=== PATIENT | female | born 1975 | race Caucasian/White ===

== ENCOUNTER 2020-08-23 08:02 | Inpatient (IN) | payer MEDICAID, SELFPAY ==
[2020-08-23 08:03] VITALS: BP 127/75; PULSE 103; RESP 18; TEMP 36.7; O2SAT 97; BMI 19.0
--- NOTE | 2020-08-23 08:20 | ED_ITS ---
Documented by User: EstelaJONATHAN Solano 08/23/20 14:25 HPI - Psych General: Chief Complaint: Psychiatric Symptoms Stated Complaint: SI, METH USE Time Seen by Provider: 08/23/20 08:08 History of Present Illness: HPI Narrative: 44-year-old female patient presents to the emergency department with suicidal ideations, increased auditory hallucinations. She reports out of Suboxone for the past 2 days. She receives her Suboxone by her mental health provider in [facility]. She reports failed to show for an appointment for refills. Relapsed use of methamphetamine last night. She is brought to the emergency department via EMS this morning with request to be admitted to the stress unit. She reports increased stress as she does not have a place to live, her kids do not want her around. She reports increased auditory hallucinations with voices yelling and screaming at her to kill her self. When asked how, she reports, voices are telling me to cut myself , she reports previous suicide attempt at age 17 by cutting, she reports placed on 96-hour hold in the past. She was brought to the emergency department due to nausea chills and abdominal pain, withdrawal symptoms from Suboxone , received Versed and Zofran in route, she reports is hungry upon exam and wants to eat something. MD complaint: suicidal ideation, feels depressed and altered mental status (recent use of metamphetamine) Onset (ago): hour(s) (8) Duration: intermittent History of same: Yes Relieving factors: medication Exacerbating factors: drug use Context: recent drug abuse, significant life stressor and other (out of Suboxone) Associated psychiatric symptoms: depression, suicidal ideation, auditory hallucinations and delusions Associated symptoms: Reports auditory hallucinations, depression and suicidal ideation Treatments prior to arrival: other (versed and zofran) If self harm: admits thoughts of self harm Review of Systems General: Reports: 10 or more systems reviewed and unremarkable except in HPI and below Const: Denies: fever(s), chills or diaphoresis Eyes: Denies: blurry vision or eye redness ENMT: Denies: throat pain, dental pain or disequilibrium Card: Denies: chest pain, palpitations or irregular heart rhythm Resp: Denies: dyspnea, productive cough, non-productive cough or wheezing GI: Reports: abdominal pain (now resolved) and nausea; Denies: vomiting : Denies: difficulty voiding or dysuria Musc: Denies: neck pain, back pain or joint pain Skin/Breast: Denies: rash or pruritus Neuro: Denies: headache(s), weakness in extremities or behavioral changes Psych: Reports: anxiety, depression, panic attacks, sleeping less, change in appetite, paranoia, difficulty concentrating, auditory hallucinations and suicidal ideation Eladio/Lymph: Denies: easy bruising PFSH ED PFSH: Medical History Anxiety Depression Opioid abuse Family History (System 06/27/20 @ 12:19 by Caridad Carrillo) Other Atrial fibrillation CAD (coronary artery disease) Social History Smoking and tobacco status: current every day smoker Alcohol intake: never Female Reproductive History: Date of last menstrual period: 06/18/20 Physical Exam Const: COMMON NORMALS: no acute distress, patient oriented x3 and alert EXAM LIMITATIONS: behavioral limitations GENERAL APPEARANCE: cooperative and anxious NUTRITIONAL APPEARANCE: thin ORIENTATION/CONSCIOUSNESS: Yes awake, Yes oriented to person, Yes oriented to place and Yes oriented to time HENMT: COMMON NORMALS: normocephalic, atraumatic, EAC's normal, Normal external nose present and moist oral mucous membranes HEAD & SCALP: normal to inspection, normocephalic and atraumatic FACE & SINUS: normal facial exam and face symmetric NOSE: Normal external nose present EXTERNAL AUDITORY CANAL: EAC's normal MOUTH: tongue normal and moist mucous membranes abnormal (dry) THROAT: posterior oropharynx normal and uvula midline Eye: COMMON NORMALS: Equal, round and reactive pupils present and EOMs intact bilaterally GENERAL EYE: appearance normal, both eyes and all related structures PUPIL: Yes Equal, round and reactive pupils present Neck/C-Spine: COMMON NORMALS: full ROM, no lymphadenopathy and supple GENERAL: Yes normal visual inspection and Yes trachea midline CERVICAL SPINE: Yes cervical ROM normal Lymph: LYMPHATIC: no lymphadenopathy noted Chest: COMMONS NORMALS: normal inspection of the chest and normal palpation of entire chest wall Resp: COMMON NORMALS: normal respiratory effort, No retractions, No use of accessory muscles and clear to auscultation bilaterally EFFORT & INSPECTION: Yes able to speak in complete sentences AUSCULTATION: clear to auscultation bilaterally Cardio: COMMON NORMALS: regular rate, regular rhythm, S1 normal heart sound present and S2 normal heart sound present RATE: regular rate and tachycardic (slight) RHYTHM: regular rhythm HEART SOUNDS: S1 normal heart sound present and S2 normal heart sound present GI: COMMON NORMALS: Soft to palpation and non-tender INSPECTION: Yes normal to inspection PALPATION: Yes Soft to palpation : COMMON NORMALS: Yes no CVA tenderness BLADDER/KIDNEY EXAM: Yes no CVA tenderness Back/Pelvis: COMMON NORMALS: no CVA tenderness and thoracic and lumbar spine normal to inspection Extremity: COMMON NORMALS: normal to inspection and capillary refill normal Neuro: COMMON NORMALS: patient oriented x3 and no focal motor deficits SENSORIUM/ORIENTATION: Yes alert, Yes oriented to person, Yes oriented to place and Yes oriented to time Psych: COMMON NORMALS: mental status grossly normal and cooperative APPEARANCE: Yes unkempt and Yes disheveled ATTITUDE: Yes calm ACTIVITY/MOTOR BEHAVIOR: Yes appropriate eye contact, Yes fidgeting, Yes hyperactivity, Yes disorganized behavior and Yes restless SPEECH: Yes rapid MOOD & AFFECT: Yes anxious THOUGHT PROCESS: Circumstantial thought process present and disorganized THOUGHT CONTENT: Yes Suicidality present ATTENTION/CONCENTRATION: Yes attention grossly intact MEMORY/COGNITION: Yes memory grossly intact INSIGHT: Fair insight present (Psych) JUDGEMENT: Fair judgement present (Psych) Skin: COMMON NORMALS: no rashes or lesions noted, no wounds and turgor normal GENERAL SKIN EXAM: no rashes or lesions noted and turgor normal MDM - Psych Lab Data: Labs: Lab Results 08/23/20 08/23/20 08/23/20 Range/Units 08:21 08:21 08:21 WBC (4.0-10.0) 10^3/ uL RBC (4.1-5.3) 10^6/u L Hgb (11.5-15.3) g/dL Hct (37.0-47.0) % MCV (81-99) fL MCH (28.0-34.0) pg MCHC (30.0-36.0) g/dL RDW (12.1-15.1) % Plt Count (130-400) 10^3/c mm MPV (7.4-10.4) fL Neut % (Auto) % Lymph % (Auto) % [place] % (Auto) % Eos % (Auto) % Baso % (Auto) % Neut # (Auto) (1.8-7.7) 10^3/u L Lymph # (Auto) (0.8-4.8) 10^3/u L [place] # (Auto) (0.2-0.9) 10^3/u L Eos # (Auto) (0.0-0.8) 10^3/u L Baso # (Auto) (0.0-0.1) 10^3/u L Nucleated RBC % (a uto) % Nucleated RBCs # /100WBC Sodium (136-145) mmol/L Potassium (3.5-5.1) mmol/L Chloride (98-107) mmol/L Carbon Dioxide (22-29) mmol/L Anion Gap (5-19) BUN (6-20) mg/dL Creatinine (0.5-0.9) mg/dL GFR Calculation (90-130) mL/min Glucose (65-115) mg/dL Calculated Osmolal ity (285-295) mOsm/k g Calcium (8.5-10.5) mg/dL Total Bilirubin (0.15-1.2) mg/dL AST (0-32) U/L ALT (0-33) U/L Alkaline Phosphata se (35-105) IU/L Total Protein (6.6-8.7) g/dL Albumin (3.5-5.2) g/dL Globulin (1.3-4.6) g/dL Lipase (13-60) U/L Urine Color Yellow (Yellow) Urine Appearance Clear (CLEAR) Urine pH 5 (5-7) Ur Specific Gravit y 1.005 (1.005-1.030) Urine Protein Neg (Negative) Urine Glucose (UA) Norm (Normal) Urine Ketones Negative (Negative) Urine Blood Neg (Negative) Urine Nitrate Negative (Negative) Urine Bilirubin Neg (Negative) Urine Urobilinogen 1 H (Negative) mg/dL Ur Leukocyte Shayy ase Negative (Negative) Urine HCG, Qual Negative (Negative) Salicylates (3-10) mg/dL Urine Opiates Scre en Negative (Negative) ng/mL Acetaminophen (10-30) ug/mL Ur Barbiturates Sc reen Negative (Negative) ng/mL Ur Phencyclidine S crn Negative (Negative) ng/mL Ur Amphetamines Sc reen Positive H (Negative) ng/mL U Benzodiazepines Scrn Negative (Negative) ng/mL Urine Cocaine Scre en Negative (Negative) ng/mL U Marijuana (THC) Screen Positive H (Negative) ng/mL Ethyl Alcohol (0-10) mg/dL 08/23/20 08/23/20 Range/Units 08:58 08:58 WBC 8.4 (4.0-10.0) 10^3/ uL RBC 4.93 (4.1-5.3) 10^6/u L Hgb 12.1 (11.5-15.3) g/dL Hct 38.6 (37.0-47.0) % MCV 78.3 L (81-99) fL MCH 24.5 L (28.0-34.0) pg MCHC 31.3 (30.0-36.0) g/dL RDW 16.0 H (12.1-15.1) % Plt Count 286 (130-400) 10^3/c mm MPV 11.0 H (7.4-10.4) fL Neut % (Auto) 51.8 % Lymph % (Auto) 35.4 % [place] % (Auto) 7.5 % Eos % (Auto) 4.7 % Baso % (Auto) 0.5 % Neut # (Auto) 4.37 (1.8-7.7) 10^3/u L Lymph # (Auto) 3.0 (0.8-4.8) 10^3/u L [place] # (Auto) 0.6 (0.2-0.9) 10^3/u L Eos # (Auto) 0.4 (0.0-0.8) 10^3/u L Baso # (Auto) 0.0 (0.0-0.1) 10^3/u L Nucleated RBC % (a uto) 0 % Nucleated RBCs # 0.0 /100WBC Sodium 138 (136-145) mmol/L Potassium 3.7 (3.5-5.1) mmol/L Chloride 104 (98-107) mmol/L Carbon Dioxide 24 (22-29) mmol/L Anion Gap 13.7 (5-19) BUN 18 (6-20) mg/dL Creatinine 0.4 L (0.5-0.9) mg/dL GFR Calculation 174.2 H (90-130) mL/min Glucose 76 (65-115) mg/dL Calculated Osmolal ity 287 (285-295) mOsm/k g Calcium 9.5 (8.5-10.5) mg/dL Total Bilirubin 0.4 (0.15-1.2) mg/dL AST 19 (0-32) U/L ALT 11 (0-33) U/L Alkaline Phosphata se 67 (35-105) IU/L Total Protein 7.0 (6.6-8.7) g/dL Albumin 4.2 (3.5-5.2) g/dL Globulin 2.8 (1.3-4.6) g/dL Lipase 12 L (13-60) U/L Urine Color (Yellow) Urine Appearance (CLEAR) Urine pH (5-7) Ur Specific Gravit y (1.005-1.030) Urine Protein (Negative) Urine Glucose (UA) (Normal) Urine Ketones (Negative) Urine Blood (Negative) Urine Nitrate (Negative) Urine Bilirubin (Negative) Urine Urobilinogen (Negative) mg/dL Ur Leukocyte Shayy ase (Negative) Urine HCG, Qual (Negative) Salicylates < 0.3 L (3-10) mg/dL Urine Opiates Scre en (Negative) ng/mL Acetaminophen < 5.0 L (10-30) ug/mL Ur Barbiturates Sc reen (Negative) ng/mL Ur Phencyclidine S crn (Negative) ng/mL Ur Amphetamines Sc reen (Negative) ng/mL U Benzodiazepines Scrn (Negative) ng/mL Urine Cocaine Scre en (Negative) ng/mL U Marijuana (THC) Screen (Negative) ng/mL Ethyl Alcohol < 10 (0-10) mg/dL Discharge Plan Discharge Patient Disposition: Admitted As Inpatient Admit Provider: Travon Her Clinical Impression: Methamphetamine abuse, Acute psychosis Condition: Stable Sign Out Sign Out Data: Patient Sign Out occurred on 08/23/20 at 12:12. Patient's care was discussed, and care was transferred from to Jordan Bee DO. Coding Level of Care Code ED Accounting Machine Servicer for Chg Fwd Exam Comprehensive Documented by User: Jordan Bee DO 08/23/20 12:21 HPI - Psych General: Chief Complaint: Psychiatric Symptoms Stated Complaint: SI, METH USE Time Seen by Provider: 08/23/20 08:08 PFS ED PFSH: Medical History Anxiety Depression Opioid abuse Family History (System 06/27/20 @ 12:19 by Caridad Carrillo) Other Atrial fibrillation CAD (coronary artery disease) Social History Smoking and tobacco status: current every day smoker Alcohol intake: never MDM - Psych MDM Narrative: Medical decision making narrative: Patient initially seen by Estela Mercedes. Reviewed the case with her reviewed her note and seen the patient. Patient still appears to be under the influence of methamphetamines. She is denying suicidal ideation when she arrives here but had been stating she was suicidal she also having auditory hallucinations we will go ahead and admit her to Dr. Her has been consulted orders are written. Lab Data: Labs: Lab Results 08/23/20 08/23/20 08/23/20 Range/Units 08:21 08:21 08:21 WBC (4.0-10.0) 10^3/ uL RBC (4.1-5.3) 10^6/u L Hgb (11.5-15.3) g/dL Hct (37.0-47.0) % MCV (81-99) fL MCH (28.0-34.0) pg MCHC (30.0-36.0) g/dL RDW (12.1-15.1) % Plt Count (130-400) 10^3/c mm MPV (7.4-10.4) fL Neut % (Auto) % Lymph % (Auto) % [place] % (Auto) % Eos % (Auto) % Baso % (Auto) % Neut # (Auto) (1.8-7.7) 10^3/u L Lymph # (Auto) (0.8-4.8) 10^3/u L [place] # (Auto) (0.2-0.9) 10^3/u L Eos # (Auto) (0.0-0.8) 10^3/u L Baso # (Auto) (0.0-0.1) 10^3/u L Nucleated RBC % (a uto) % Nucleated RBCs # /100WBC Sodium (136-145) mmol/L Potassium (3.5-5.1) mmol/L Chloride (98-107) mmol/L Carbon Dioxide (22-29) mmol/L Anion Gap (5-19) BUN (6-20) mg/dL Creatinine (0.5-0.9) mg/dL GFR Calculation (90-130) mL/min Glucose (65-115) mg/dL Calculated Osmolal ity (285-295) mOsm/k g Calcium (8.5-10.5) mg/dL Total Bilirubin (0.15-1.2) mg/dL AST (0-32) U/L ALT (0-33) U/L Alkaline Phosphata se (35-105) IU/L Total Protein (6.6-8.7) g/dL Albumin (3.5-5.2) g/dL Globulin (1.3-4.6) g/dL Lipase (13-60) U/L Urine Color Yellow (Yellow) Urine Appearance Clear (CLEAR) Urine pH 5 (5-7) Ur Specific Gravit y 1.005 (1.005-1.030) Urine Protein Neg (Negative) Urine Glucose (UA) Norm (Normal) Urine Ketones Negative (Negative) Urine Blood Neg (Negative) Urine Nitrate Negative (Negative) Urine Bilirubin Neg (Negative) Urine Urobilinogen 1 H (Negative) mg/dL Ur Leukocyte Shayy ase Negative (Negative) Urine HCG, Qual Negative (Negative) Salicylates (3-10) mg/dL Urine Opiates Scre en Negative (Negative) ng/mL Acetaminophen (10-30) ug/mL Ur Barbiturates Sc reen Negative (Negative) ng/mL Ur Phencyclidine S crn Negative (Negative) ng/mL Ur Amphetamines Sc reen Positive H (Negative) ng/mL U Benzodiazepines Scrn Negative (Negative) ng/mL Urine Cocaine Scre en Negative (Negative) ng/mL U Marijuana (THC) Screen Positive H (Negative) ng/mL Ethyl Alcohol (0-10) mg/dL 08/23/20 08/23/20 Range/Units 08:58 08:58 WBC 8.4 (4.0-10.0) 10^3/ uL RBC 4.93 (4.1-5.3) 10^6/u L Hgb 12.1 (11.5-15.3) g/dL Hct 38.6 (37.0-47.0) % MCV 78.3 L (81-99) fL MCH 24.5 L (28.0-34.0) pg MCHC 31.3 (30.0-36.0) g/dL RDW 16.0 H (12.1-15.1) % Plt Count 286 (130-400) 10^3/c mm MPV 11.0 H (7.4-10.4) fL Neut % (Auto) 51.8 % Lymph % (Auto) 35.4 % [place] % (Auto) 7.5 % Eos % (Auto) 4.7 % Baso % (Auto) 0.5 % Neut # (Auto) 4.37 (1.8-7.7) 10^3/u L Lymph # (Auto) 3.0 (0.8-4.8) 10^3/u L [place] # (Auto) 0.6 (0.2-0.9) 10^3/u L Eos # (Auto) 0.4 (0.0-0.8) 10^3/u L Baso # (Auto) 0.0 (0.0-0.1) 10^3/u L Nucleated RBC % (a uto) 0 % Nucleated RBCs # 0.0 /100WBC Sodium 138 (136-145) mmol/L Potassium 3.7 (3.5-5.1) mmol/L Chloride 104 (98-107) mmol/L Carbon Dioxide 24 (22-29) mmol/L Anion Gap 13.7 (5-19) BUN 18 (6-20) mg/dL Creatinine 0.4 L (0.5-0.9) mg/dL GFR Calculation 174.2 H (90-130) mL/min Glucose 76 (65-115) mg/dL Calculated Osmolal ity 287 (285-295) mOsm/k g Calcium 9.5 (8.5-10.5) mg/dL Total Bilirubin 0.4 (0.15-1.2) mg/dL AST 19 (0-32) U/L ALT 11 (0-33) U/L Alkaline Phosphata se 67 (35-105) IU/L Total Protein 7.0 (6.6-8.7) g/dL Albumin 4.2 (3.5-5.2) g/dL Globulin 2.8 (1.3-4.6) g/dL Lipase 12 L (13-60) U/L Urine Color (Yellow) Urine Appearance (CLEAR) Urine pH (5-7) Ur Specific Gravit y (1.005-1.030) Urine Protein (Negative) Urine Glucose (UA) (Normal) Urine Ketones (Negative) Urine Blood (Negative) Urine Nitrate (Negative) Urine Bilirubin (Negative) Urine Urobilinogen (Negative) mg/dL Ur Leukocyte Shayy ase (Negative) Urine HCG, Qual (Negative) Salicylates < 0.3 L (3-10) mg/dL Urine Opiates Scre en (Negative) ng/mL Acetaminophen < 5.0 L (10-30) ug/mL Ur Barbiturates Sc reen (Negative) ng/mL Ur Phencyclidine S crn (Negative) ng/mL Ur Amphetamines Sc reen (Negative) ng/mL U Benzodiazepines Scrn (Negative) ng/mL Urine Cocaine Scre en (Negative) ng/mL U Marijuana (THC) Screen (Negative) ng/mL Ethyl Alcohol < 10 (0-10) mg/dL Discharge Plan Discharge Patient Disposition: Admitted As Inpatient Admit Provider: Travon Her Clinical Impression: Methamphetamine abuse, Acute psychosis Condition: Stable Sign Out Sign Out Data: Patient Sign Out occurred on 08/23/20 at 12:12. Patient's care was discussed, and care was transferred from to Jordan Bee DO. Coding Level of Care Code ED Accounting Machine Servicer for [place] Fwd Exam Comprehensive
[2020-08-23 08:39] LABS: Add Urine Microscopic? NO
[2020-08-23 08:48] LABS: Bilirubin Urine Neg (Negative); Blood Urine Neg (Negative); Glucose Urine UA Norm (Normal); Ketones Urine Negative (Negative); Leukocyte Esterase Urine Negative (Negative); Nitrate Urine Negative (Negative); Protein Urine Neg (Negative); Specific Gravity, Urine 1.005 (1.005-1.030); Urine Appearance Clear (CLEAR); Urine Color Yellow (Yellow); Urobilinogen Urine 1 mg/dL (Negative); pH Urine 5 (5-7)
[2020-08-23 08:55] LABS: Amphetamines Screen Urine Positive (Negative); Barbiturates Screen Urine Negative (Negative); Benzodiazepines Screen Urine Negative (Negative); Cocaine Screen Urine Negative (Negative); Opiate Screen Urine Negative (Negative); PCP Screen Urine Negative (Negative); THC Screen Urine Positive (Negative)
[2020-08-23] MEDS: sodium chloride 0.9% 1,000 ML 999 ML IV (09:06)
[2020-08-23 09:13] LABS: Basophils % 0.5 %; Eosinophils # 0.4 10^3/uL (0.0-0.8); Eosinophils % 4.7 %; Hematocrit 38.6 % (37.0-47.0); Hemoglobin 12.1 g/dL (11.5-15.3); Lymphocytes % 35.4 %; Mean Corpuscular HGB Conc 31.3 g/dL (30.0-36.0); Mean Corpuscular Hemoglobin 24.5 pg (28.0-34.0); Mean Corpuscular Volume 78.3 fL (81-99); Monocytes # 0.6 10^3/uL (0.2-0.9); Monocytes % 7.5 %; Neutrophils # 4.37 10^3/uL (1.8-7.7); Neutrophils % 51.8 %; Nucleated Red Blood Cells % 0 %; Platelet Count 286 10^3/cmm (130-400); Red Blood Count 4.93 10^6/uL (4.1-5.3); White Blood Count 8.4 10^3/uL (4.0-10.0)
[2020-08-23 09:38] LABS: Alanine Aminotransferase 11 U/L (0-33); Albumin Level 4.2 g/dL (3.5-5.2); Alkaline Phosphatase 67 IU/L (35-105); Anion Gap 13.7 (5-19); Aspartate Amino Transferase 19 U/L (0-32); Blood Urea Nitrogen 18 mg/dL (6-20); Calcium 9.5 mg/dL (8.5-10.5); Carbon Dioxide 24 mmol/L (22-29); Chloride 104 mmol/L (98-107); Globulin 2.8 g/dL (1.3-4.6); Glomerular Filtration Rate 174.2 mL/min (90-130); Glucose 76 mg/dL (65-115); Lipase 12 U/L (13-60); Osmolality Calculated 287 mOsm/kg (285-295); Potassium 3.7 mmol/L (3.5-5.1); Sodium 138 mmol/L (136-145); Total Bilirubin 0.4 mg/dL (0.15-1.2)
[2020-08-23 09:40] LABS: Acetaminophen < 5.0 ug/mL (10-30); Alcohol Level < 10 mg/dL (0-10); Salicylate < 0.3 mg/dL (3-10)
[2020-08-23 11:12] VITALS: BP 128/92; PULSE 78; RESP 18; O2SAT 98
[2020-08-23 14:20] VITALS: BP 133/112; PULSE 76; RESP 18; O2SAT 95
[2020-08-23 18:16] VITALS: RESP 18
[2020-08-23] MEDS: nicotine 2 mg Gum BUCCAL (19:41)
[2020-08-23] MEDS: OLANZapine 5 mg ODT PO (21:14)
[2020-08-23] MEDS: propranolol 20 mg Tablet PO (21:14)
[2020-08-23] MEDS: hyDROXYzine 25 mg Capsule 50 MG PO (21:14)
[2020-08-23] MEDS: trazodone 100 mg Tablet PO (21:14)
[2020-08-23 22:00] VITALS: BP 127/76; PULSE 74; RESP 18; TEMP 36.9; O2SAT 99
[2020-08-24 06:00] VITALS: BP 132/80; PULSE 70; RESP 18; TEMP 37.2; O2SAT 97
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
--- NOTE | 2020-08-24 09:58 | PC.RESP ---
Smoking Cessation information sent to patient.
[2020-08-24] MEDS: hyDROXYzine 25 mg Capsule 50 MG PO ×2 (13:13→22:16)
[2020-08-24 14:00] VITALS: BP 114/73; PULSE 67; RESP 20; TEMP 37.2; O2SAT 98
[2020-08-24] MEDS: acetaminophen 325 mg Tablet 650 MG PO ×2 (16:42→22:16)
[2020-08-24] MEDS: cetylpyridinium Lozenge 1 EACH MUCOUS MEM ×2 (19:05→22:16)
[2020-08-24 20:09] VITALS: BP 118/76; PULSE 60; RESP 19; TEMP 36.5; O2SAT 98
[2020-08-24] MEDS: propranolol 20 mg Tablet PO (22:15)
[2020-08-24] MEDS: trazodone 100 mg Tablet PO (22:16)
[2020-08-25 06:00] VITALS: BP 117/80; PULSE 72; RESP 19; TEMP 37.2; O2SAT 97
[2020-08-25] MEDS: nicotine 2 mg Gum BUCCAL ×3 (06:22→22:30)
[2020-08-25] MEDS: acetaminophen 325 mg Tablet 650 MG PO ×2 (06:22→17:39)
[2020-08-25] MEDS: propranolol 20 mg Tablet PO ×3 (06:38→21:20)
[2020-08-25] MEDS: fluoxetine 20 mg Capsule PO (08:43)
[2020-08-25] MEDS: nicotine 21 mg Patch 1 PATCH TRANSDERMA (09:02)
--- NOTE | 2020-08-25 13:53 | P.PN_ITS ---
Subjective NPU Subjective: Interval history: Kamille presents today reporting that she knows she needs to get mental health and especially addiction treatment however she see very ambivalent about committing to getting that treatment especially at a higher level of care. She endorses multiple other things she needs to do without any clear focus on her situation and her addiction. She reports that she is feeling better and denied any lethality. She identified being a voluntary patient and we discussed her being able to discharge in the morning. Mental Status Exam MSE Comments: This is an underweight white female looking older than her stated age with poor grooming and eye contact. No abnormal movements except for improving/lessening psychomotor agitation. More cooperative with exam in mild distress. Speech was increased rate and volume. Mood described as anxious, affect congruent. Thought process organized. Thought content: Patient endorsed suicidal thoughts but not also ideation, there were no delusions reported or noted, she denied any auditory or visual hallucinations. Attention and concentration appeared intact and memory appeared reliable but none were formally tested. She is alert and oriented x3. Insight and judgment are limited and impulse control is impaired. Vitals/I&O/Wt Last Vital Signs Temp 98.0 F 08/25/20 20:00 Pulse 55 L 08/25/20 20:00 Resp 15 08/25/20 20:00 BP 118/80 08/25/20 20:00 Pulse Ox 98 08/25/20 20:00 Data NPU : 08/23/20 08:58 08/23/20 08:58 A&P Additional A&P Information (1) Bereavement: (2) Acute psychosis: (3) Anxiety: (4) Depression: (5) Methamphetamine abuse: (6) Opioid abuse: Additional A&P Information This is a 44-year-old white female with a long history of addiction, depression and anxiety who presents reporting that her symptoms are [id number] as she deals with recent losses and grieving and endorses an openness to initiate medications. 1. Continue current medications. 2. Continue every 15 minute checks for safety. 3. Encourage individual, group and milieu therapy. 4. Encourage sober living treatment after discharge at the highest level of c are to which she is willing to commit. Involuntary Hold Information 96 Hour Hold: 96 Hour Involuntary Admission: No Attestations NPU Medical Necessity Statement*: Inpatient hospitalization is medically necessary and the clinically appropriate intervention at this time. We will monitor medications and make changes as indicated. Likely length of stay 2-4 days. She is a voluntary patient and so if she is requesting discharge tomorrow we will allow her to leave. Coding Level of Care Code Acute Computer Aided Design Drafter for Aquilino Apodaca
[2020-08-25 14:00] VITALS: BP 116/72; PULSE 76; RESP 18; TEMP 36.6; O2SAT 97
[2020-08-25] MEDS: cetylpyridinium Lozenge 1 EACH MUCOUS MEM ×2 (17:39→21:20)
[2020-08-25] MEDS: hyDROXYzine 25 mg Capsule 50 MG PO ×2 (17:39→22:29)
[2020-08-25 20:00] VITALS: BP 118/80; PULSE 55; RESP 15; TEMP 36.7; O2SAT 98
[2020-08-25] MEDS: trazodone 100 mg Tablet PO (21:20)
[2020-08-25] MEDS: OLANZapine 5 mg ODT PO (22:29)
[2020-08-25] MEDS: haloperidol 5 mg Tablet PO (23:57)
[2020-08-26 06:00] VITALS: BP 118/67; PULSE 50; RESP 14; TEMP 37.1; O2SAT 99
[2020-08-26] MEDS: nicotine 21 mg Patch 1 PATCH TRANSDERMA (08:13)
[2020-08-26] MEDS: fluoxetine 20 mg Capsule PO (08:13)
[2020-08-26] MEDS: propranolol 20 mg Tablet PO (08:49)
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
[2020-08-26 10:12] VITALS: BP 118/67; PULSE 50; RESP 14; TEMP 37.1; O2SAT 99
[2020-08-26] MEDS: nicotine 2 mg Gum BUCCAL ×2 (11:05→16:06)
== END 2020-08-26 16:18 | disposition home or self-care (01) | DRG 885 ==
LOC: ER 12:21 → NP 13:31
PROVIDERS: Nurse Practitioner Family; Admitting Provider Psychiatry & Neurology Psychiatry; Emergency Provider Family Medicine; Visit Provider Psychiatry & Neurology Psychiatry
DX: F23 Brief psychotic disorder (principal); R45.851 Suicidal ideations; F15.10 Other stimulant abuse, uncomplicated; F11.10 Opioid abuse, uncomplicated; Z91.14 Patient's other noncompliance with medication regimen; Z81.8 Family history of other mental and behavioral disorders; G62.9 Polyneuropathy, unspecified; D33.0 Benign neoplasm of brain, supratentorial; J45.909 Unspecified asthma, uncomplicated; Z86.14 Personal history of Methicillin resistant Staphylococcus aureus infection; G40.909 Epilepsy, unspecified, not intractable, without status epilepticus; F32.9 Major depressive disorder, single episode, unspecified; F17.210 Nicotine dependence, cigarettes, uncomplicated; Z63.4 Disappearance and death of family member
CPT/HCPCS: 12345; 80053; 80306; 80307; 81003; 81025; 83690; 85025; 90471; 90686; 99284; J7040